=== PATIENT | female | born 1995 | race Caucasian/White ===

== ENCOUNTER 2019-08-22 14:31 | Emergency (ER) | payer OTHER, SELFPAY ==
[2019-08-22 14:33] VITALS: BP 118/81; PULSE 73; RESP 20; TEMP 36.8; O2SAT 97
[2019-08-22 14:56] LABS: Add Manual Diff / Slide Review NO; Basophils Absolute Auto 0 /uL (0-100); Basophils Percent Auto 0.3 % (0-2); Eosinophils Absolute Auto 0 /uL (0-450); Eosinophils Percent Auto 0.1 % (2-4); Hematocrit 35.7 % (36-46); Hemoglobin 12.6 g/dL (12.0-16.0); Lymphocytes Absolute Auto 1200 /uL (1100-4500); Lymphocytes Percent Auto 17.7 % (25-40); Mean Corpuscular HGB Conc 35.4 % (30-36); Mean Corpuscular Hemoglobin 28.9 PG (26-34); Mean Corpuscular Volume 81.8 fL (80-100); Monocytes Absolute Auto 400 /uL (0-900); Monocytes Percent Auto 5.2 % (3-14); Neutrophils Absolute Auto 5300 /uL (1500-7000); Neutrophils Percent Auto 76.7 % (50-75); Platelet Count 226 X10^3/uL (150-400); Red Blood Cell Count 4.36 X10^6/uL (4.0-5.2); Red Cell Distribution Width 12.2 % (11.6-14.8); White Blood Cell Count 6.9 X10^3/uL (4.5-11.0)
[2019-08-22 15:09] LABS: Alanine Aminotransferase 35 IU/L (<35); Albumin 4.9 g/dL (3.5-5.0); Albumin Globulin Ratio 1.8 (1.0-2.8); Alkaline Phosphatase 47 U/L (38-126); Aspartate Aminotransferase 68 IU/L (14-36); BUN Creatinine Ratio 23.3 (6-22); Bilirubin Total 0.7 mg/dL (0.2-1.3); Blood Urea Nitrogen 14 mg/dL (7-17); Calcium 9.9 mg/dL (8.4-10.2); Carbon Dioxide 24 mmol/L (22-32); Chloride 102 mmol/L (98-107); Estimated Glomerular Filt Rate > 60.0 mL/min (>60); Globulin 2.7 g/dL (1.7-4.1); Glucose 85 mg/dL (70-100); HEMOLYSIS < 15 (0-50); Lipase 63 U/L (23-300); Potassium 4.1 mmol/L (3.4-5.1); Sodium 138 mmol/L (137-145); Total Protein 7.6 g/dL (6.3-8.2)
--- NOTE | 2019-08-22 15:29 | DI.US.S_ITS ---
PROCEDURE: US ABDOMEN COMPLETE INDICATIONS: UPPER ABD PAIN/TENDERNESS, NAUSEA TECHNIQUE: Real-time scanning was performed of the abdominal and retroperitoneal organs, with image documentation. COMPARISON: None. FINDINGS: Liver: Liver is normal in size and homogeneous in echotexture. Gallbladder: The gallbladder wall measures up to 8 mm in diameter. There is a positive sonographic Villatoro's sign. No stones or sludge visualized. No pericholecystic fluid Biliary ducts: Intrahepatic bile ducts are non-dilated. Extrahepatic bile duct caliber measures 3.1 mm. Normal is 6-7 mm or less in diameter, or 10 mm or less post-cholecystectomy. Pancreas: Visualized portions of the pancreas are sonographically normal. Spleen: Spleen is normal in size and homogeneous in echotexture. Kidneys: Kidneys are normal in size and echotexture. Right kidney measures 11.1 cm long; left kidney measures 10.9 cm long. No hydronephrosis or nephrolithiasis. No solid masses. Aorta: Visualized aorta is normal in caliber at less than 3 cm. Iliacs: Proximal common iliac arteries are normal in caliber at less than 2.5 cm. IVC: Intrahepatic inferior vena cava is patent. Miscellaneous: No free abdominal fluid. IMPRESSION: No cholelithiasis. Markedly thickened gallbladder wall. Differential considerations include acalculous cholecystitis and gallbladder hydrops. No findings to suggest choledocholithiasis. Dictated by: Lalita Scott M.D. on 08/22/2019 at 15:28 Approved by: Lalita Scott M.D. on 08/22/2019 at 15:30
[2019-08-22] MEDS: ONDANSETRON 4 MG ODT PO (16:44)
[2019-08-22 16:45] VITALS: BP 113/73; PULSE 78; RESP 18; O2SAT 99
--- NOTE | 2019-08-22 17:48 | ED_ITS ---
HPI - Abdominal Pain General Chief Complaint: Abdominal Pain Stated Complaint: abdominal pain Time Seen by Provider: 08/22/19 16:26 Source: patient Mode of arrival: Ambulatory Limitations: no limitations History of Present Illness HPI narrative: Patient comes emergency department complaining of upper abdominal pain with nausea and vomiting on and off for the last 3 weeks. She states that she has been losing weight because she cannot keep food down. She states that every time she eats the food just comes back up and she has been having left upper quadrant pain with this. She denies any fevers or chills. No jaundice. She has no history of ulcers, GERD, or gallbladder issues. No family history of gallbladder issues. Patient is otherwise healthy. She denies any chest pain or shortness of breath. No dysuria or hematuria. No diarrhea. No constipation. No other complaints at this time. Related Data Home Medications Medication Instructions Recorded Confirmed etonogestrel-ethinyl estradiol vag ring VAGINAL 08/22/19 [NuvaRing] Previous Rx's Medication Instructions Recorded ondansetron 4 mg PO Q6H PRN #60 tab 08/22/19 pantoprazole [Protonix] 20 mg PO DAILY #30 tab 08/22/19 Allergies Allergy/AdvReac Type Severity Reaction Status Date / Time No Known Drug Allergies Allergy Verified 08/22/19 14:36 Review of Systems Review of Systems ROS Unobtainable: All systems reviewed & are unremarkable except as noted in HPI and below Constitutional Constitutional: Denies chills, Denies fatigue, Denies fever(s), Denies frequent falls, Denies lethargy and Denies weakness Eyes Eyes: Denies change in vision, Denies eye discharge, Denies irritation and Denies loss of vision ENT Ears, Nose, Mouth, and Throat: Denies change in voice, Denies dizziness, Denies neck pain, Denies sore throat and Denies throat swelling Cardiovascular Cardiovascular: Denies chest pain, Denies irregular heart rhythm, Denies lightheadedness, Denies palpitations, Denies dyspnea, Denies dyspnea on exertion and Denies orthopnea Respiratory Respiratory: Denies cough, Denies dyspnea, Denies dyspnea on exertion and Denies wheezing Gastrointestinal Gastrointestinal: Reports abdominal pain, Denies change in bowel habits, Denies diarrhea, Reports nausea and Reports vomiting Genitourinary Genitourinary: Denies hematuria, Denies flank pain, Denies urinary incontinence and Denies urinary urgency Musculoskeletal Musculoskeletal: Denies back pain, Denies muscle weakness, Denies neck pain, Denies numbness and Denies tingling Integumentary/Breasts Skin/Breast: Denies pruritus, Denies erythema, Denies rash and Denies wounds Neurologic Neurologic: Denies behavioral changes, Denies confusion, Denies dizziness, Denies frequent falls, Denies loss of vision, Denies numbness, Denies tingling and Denies weakness Psychiatric Psychiatric: Denies anxiety, Denies behavioral changes, Denies confusion, Denies depression, Denies homicidal ideation and Denies suicidal ideation Endocrine Endocrine: Denies fatigue, Denies flushing and Denies palpitations Hematologic/Lymphatic Hematologic/Lymphatic: Denies easy bruising Allergic/Immunologic Allergic/Immunologic: Denies urticaria, Denies throat swelling and Denies wheezing Patient History Medical History Endometriosis (Acute) Social History Smoking Status: Never smoker Smoking Status: Never smoker Substance Use Type: marijuana Exam Initial Vital Signs Initial Vital Signs: Vital Signs Temperature 98.2 F 08/22/19 14:33 Pulse Rate 73 08/22/19 14:33 Respiratory Rate 20 08/22/19 14:33 Blood Pressure 118/81 08/22/19 14:33 Pulse Oximetry 97 08/22/19 14:33 Const General: cooperative and well developed Nutritional Appearance: well nourished Orientation: alert, awake, oriented x3 and not confused [facility] Head: normocephalic and atraumatic Ears: external ears normal Nose: external nose normal and No nasal discharge Face and sinus: face symmetric and No dry mucous membranes Mouth: oral mucosae normal and moist mucous membranes Teeth and gingiva: dentition normal Eyes General: appearance normal, both eyes and all related structures Eyelids: eyelids normal Conjunctivae: conjunctivae normal Sclera: sclerae normal Pupils: PERRL EOM: EOM intact bilaterally Neck Neck: normal visual inspection, trachea midline, No lymphadenopathy, No midline deformity and No JVD Lymphatic: No lymphedema Chest Chest: normal inspection of the chest Resp Effort & Inspection: normal respiratory effort, able to speak in complete sentences, no respiratory distress and no use of accessory muscles Auscultation: clear to auscultation bilaterally, no rales, no rhonchi and no wheezes Cardio Rate: regular rate Rhythm: regular rhythm Heart Sounds: no click, no gallops, no murmurs and no rubs Pulses: normal peripheral pulses GI Inspection: non-distended Palpation: soft, no hepatosplenomegaly, No guarding, No pulsatile mass and tender (Moderate, epigastrium; mild luq; ruq nontender) Back/Spine/Pelvis Back: No CVA tenderness Cervical Spine: cervical ROM normal and No pain with cervical ROM Thoracic/Lumbar Spine: thoracic and lumbar spine normal to inspection Skin General: no rashes or lesions noted, No jaundice and No petechiae Neuro General: alert, oriented x3, gait normal and no focal motor deficits Speech: speech normal Extrem General: full ROM, no clubbing, cyanosis or edema, no pedal edema and no calf tenderness Psych Appearance: well kempt Mental Status: mental status grossly normal Attitude: cooperative Thought Content: normal and suicidality Judgment: judgment good Course Course Course Narrative: The patient was worked up with labs and right upper quadrant ultrasound and treated symptomatically with Zofran, GI cocktail, and Protonix. She reported feeling better after these interventions. The patient's labs showed a mild elevation of the patient is AST, with borderline ALT and other LFTs completely unremarkable. The patient's abdominal ultrasound showed a thickened gallbladder wall without stranding and without ductal dilatation. Additionally, no gallstones were seen. The patient's white blood cell count was normal, and given her ongoing symptoms with minimal LFT derangement, afebrile state, and absence of leukocytosis, I did not feel that further emergent intervention was indicated. I did discuss with the patient that she should continue her plan to follow up with Gastroenterology, and that she should also follow up with surgery clinic to discuss whether she would need further intervention for her gallbladder at some point. I've also discussed with her that either GI or surgery can do an endoscopy, which is also important next step in evaluating this patient's ongoing symptoms. We have discussed home management of the symptoms, as well as the usual indications for return. Orders Ordered: Discontinued Medications Al Hydrox/Mg Hydrox/Simethicone 20 ml/ Lidocaine HCl 15 ml 0 ml PO NOW ONE Stop: 08/22/19 18:12 Last Admin: 08/22/19 18:29 Dose: 35 ml Documented by: ANGLE Ondansetron HCl (Zofran Odt) 4 mg PO NOW ONE Stop: 08/22/19 16:40 Last Admin: 08/22/19 16:44 Dose: 4 mg Documented by: ANGLE Ondansetron HCl (Zofran Odt Prepack) 1 bottle MISC SEEINSTR ONE Stop: 08/22/19 18:24 Last Admin: 08/22/19 18:29 Dose: 1 bottle Documented by: ANGLE Pantoprazole Sodium (Protonix) 20 mg PO NOW ONE Stop: 08/22/19 18:09 Last Admin: 08/22/19 18:29 Dose: 20 mg Documented by: ANGLE Vital Signs Vital signs: Vital Signs - 8 hr 08/22/19 14:33 08/22/19 16:45 Temperature 98.2 F Pulse Rate 73 78 Respiratory Rate 20 18 Blood Pressure 118/81 Blood Pressure [Left Arm] 113/73 Pulse Oximetry 97 99 MDM - Abdominal Pain Medical Records Attestation: I reviewed the patient's medical records. Lab Data Attestation: I reviewed the patient's lab results. Result diagrams: 08/22/19 14:44 08/22/19 14:44 Labs: Lab Results 08/22/19 08/22/19 Range/Units 14:44 14:44 WBC 6.9 (4.5-11.0) X10^3/uL RBC 4.36 (4.0-5.2) X10^6/uL Hgb 12.6 (12.0-16.0) g/dL Hct 35.7 L (36-46) % MCV 81.8 (80-100) fL MCH 28.9 (26-34) PG MCHC 35.4 (30-36) % RDW 12.2 (11.6-14.8) % Plt Count 226 (150-400) X10^3/uL Neut % (Auto) 76.7 H (50-75) % Lymph % (Auto) 17.7 L (25-40) % [place] % (Auto) 5.2 (3-14) % Eos % (Auto) 0.1 L (2-4) % Baso % (Auto) 0.3 (0-2) % Neut # (Auto) 5300 (9480-0691) /uL Lymph # (Auto) 1200 (1499-8467) /uL [place] # (Auto) 400 (0-900) /uL Eos # (Auto) 0 (0-450) /uL Baso # (Auto) 0 (0-100) /uL Sodium 138 (137-145) mmol/L Potassium 4.1 (3.4-5.1) mmol/L Chloride 102 (98-107) mmol/L Carbon Dioxide 24 (22-32) mmol/L BUN 14 (7-17) mg/dL Creatinine 0.60 (0.52-1.04) mg/dL Estimated GFR > 60.0 (>60) mL/min BUN/Creatinine Ratio 23.3 H (6-22) Glucose 85 (70-100) mg/dL Calcium 9.9 (8.4-10.2) mg/dL Total Bilirubin 0.7 (0.2-1.3) mg/dL AST 68 H (14-36) IU/L ALT 35 H (<35) IU/L Alkaline Phosphatase 47 (38-126) U/L Total Protein 7.6 (6.3-8.2) g/dL Albumin 4.9 (3.5-5.0) g/dL Globulin 2.7 (1.7-4.1) g/dL Albumin/Globulin Ratio 1.8 (1.0-2.8) Lipase 63 (23-300) U/L Imaging Data US - abdomen: Radiologist's Impression: PROCEDURE: US ABDOMEN COMPLETE INDICATIONS: UPPER ABD PAIN/TENDERNESS, NAUSEA TECHNIQUE: Real-time scanning was performed of the abdominal and retroperitoneal organs, with image documentation. COMPARISON: None. FINDINGS: Liver: Liver is normal in size and homogeneous in echotexture. Gallbladder: The gallbladder wall measures up to 8 mm in diameter. There is a positive sonographic Villatoro's sign. No stones or sludge visualized. No pericholecystic fluid Biliary ducts: Intrahepatic bile ducts are non-dilated. Extrahepatic bile duct caliber measures 3.1 mm. Normal is 6-7 mm or less in diameter, or 10 mm or less post-cholecystectomy. Pancreas: Visualized portions of the pancreas are sonographically normal. Spleen: Spleen is normal in size and homogeneous in echotexture. Kidneys: Kidneys are normal in size and echotexture. Right kidney measures 11.1 cm long; left kidney measures 10.9 cm long. No hydronephrosis or nephrolithiasis. No solid masses. Aorta: Visualized aorta is normal in caliber at less than 3 cm. Iliacs: Proximal common iliac arteries are normal in caliber at less than 2.5 cm. IVC: Intrahepatic inferior vena cava is patent. Miscellaneous: No free abdominal fluid. IMPRESSION: No cholelithiasis. Markedly thickened gallbladder wall. Differential considerations include acalculous cholecystitis and gallbladder hydrops. No findings to suggest choledocholithiasis. Dictated by: Lalita Scott M.D. on 08/22/2019 at 15:28 Approved by: Lalita Scott M.D. on 08/22/2019 at 15:30 Discharge Plan Departure Patient Disposition: Home Clinical Impression: Nausea Abdominal pain Qualifiers: Abdominal location: epigastric Qualified Code(s): R10.13 - Epigastric pain Discharge Date/Time: 08/22/19 18:43 Instructions: DI for Abdominal Pain-Adult, DI for Nausea -- Adult Prescriptions: New pantoprazole [Protonix] 20 mg tablet,delayed release (DR/EC) 20 mg PO DAILY Qty: 30 RF: 0 ondansetron 4 mg tablet,disintegrating 4 mg PO Q6H PRN (Reason: nausea and vomiting) Qty: 60 RF: 0 No Action NuvaRing 0.12-0.015 mg/24 hr ring VAGINAL RF: 0 Referrals: [facility] [Provider Group] [facility] [Provider Group]
[2019-08-22] MEDS: PANTOPRAZOLE 20 MG TABLET PO (18:29)
[2019-08-22] MEDS: ONDANSETRON 4 MG ODT PREPACK 1 BOTTLE MISC (18:29)
[2019-08-22] MEDS: MAG HYDROX/ALUMINUM/SIMETH SUS 20 ML, LIDOCAINE VISCOUS 2% 15 ML PO (18:29)
[2019-08-22 18:35] VITALS: BP 115/76; PULSE 83; RESP 12; O2SAT 98
== END 2019-08-22 18:43 | disposition home or self-care (01) ==
PROVIDERS: Emergency Provider Emergency Medicine
DX: R10.13 Epigastric pain (principal); R11.0 Nausea; R79.89 Other specified abnormal findings of blood chemistry
CPT/HCPCS: 36415; 76700; 80053; 83690; 85025; 99283; 99284